=== PATIENT | male | born 1975 | race Two or more races ===

== ENCOUNTER 2025-03-05 10:24 | Emergency (ER) | payer MEDICAID, OTHER ==
[~2025-03-05] VITALS: Ht 170.2 cm; Wt 99.0 kg
[2025-03-05 10:31] VITALS: BP 137/98; PULSE 93; RESP 18; TEMP 97.6; O2SAT 96
--- NOTE | 2025-03-05 10:40 | ED.PDOC ---
Eye-HPI HPI Comments 49-year-old male presents with a chief complaint of tooth pain x a couple days. Patient states that his pain is localized to his left incisor and his gums. Patient is noted to have swollen upper lip. Patient mentions that he has been taking an antibiotic from an urgent care he went to and also ibuprofen. Patient cannot recall the name of the antibiotic. Patient is able to speak in complete sentences. No other symptoms or modifying factors present at this time. Chief Complaint: Tooth Pain Time Seen by MD: 10:32 Reviewed Notes: Medications, Allergies Allergies: Coded Allergies: NO KNOWN ALLERGIES (Unverified , 03/05/25) Home Meds Active Scripts Naproxen (Naproxen) 375 Mg Tab, 375 MG PO TID for 10 Days, #30 TAB Prov:JOHN CERDA MD 03/05/25 Cefdinir (Cefdinir) 300 Mg Cap, 1 CAP PO BID for 7 Days, #14 CAP Prov:JOHN CERDA MD 03/05/25 Information Source: Patient Mode of Arrival: Ambulatory Timing: Days Duration: Since onset Prehospital treatment: Pain Meds Quality: Pain Mouth Location: Upper, Tooth/Teeth, Gums Mouth: Upper, Incisor, Tender, Swelling Onset: Spontaneous Last Tetanus: Unknown Associated signs and symptoms: Tooth Pain Past Medical History PAST MEDICAL HISTORY: Denies Surgical History: Denies all surgeries Family History Family History: Reviewed,noncontributory to illness Social History Smoker: Non-Smoker Alcohol: Denies ETOH Use Drugs: Denies Drug Use Lives In: Home Constitutional: denies: chills, diaphoresis, fatigue, fever, malaise, sweats, weakness, others EENTM: reports: mouth pain; denies: blurred vision, double vision, ear bleeding, ear discharge, ear drainage, ear pain, ear ringing, eye pain, eye redness, hearing loss, mouth swelling, nasal discharge, nose bleeding, nose congestion, nose pain, photophobia, tearing, throat pain, throat swelling, voice changes, others Respiratory: denies: cough, hemoptysis, orthopnea, SOB at rest, shortness of breath, SOB with excertion, stridor, wheezing, others Cardiovascular: denies: chest pain, dizzy spells, diaphoresis, Dyspnea on exertion, edema, irregular heart beat, left arm pain, lightheadedness, palpitations, PND, syncope, others Gastrointestinal: denies: abdomen distended, abdominal pain, blood streaked bowels, constipated, diarrhea, dysphagia, difficulty swallowing, hematemesis, melena, nausea, poor appetite, poor fluid intake, rectal bleeding, rectal pain, vomiting, others Genitourinary: denies: burning, dysuria, flank pain, frequency, hematuria, incontinence, penile discharge, penile sore, pain, testicle pain, testicle swelling, urgency, others Neurological: denies: dizziness, fainting, headache, left sided numbness, left sided weakness, numbness, paresthesia, pre-existing deficit, right sided numbness, right sided weakness, seizure, speech problems, tingling, tremors, weakness, others Musculoskeletal: denies: back pain, gout, joint pain, joint swelling, muscle pain, muscle stiffness, neck pain, others Integumetry: denies: bruises, change in color, change in hair/nails, dryness, laceration, lesions, lumps, rash, wounds, others Allergic/Immunocompromised: denies: Difficulty Healing, Frequent Infections, Hives, Itching, others Hematologic/Lymphatic: denies: anemia, blood clots, easy bleeding, easy bruising, swollen glands, others Endocrine: denies: excessive hunger, excessive sweating, excessive thirst, excessive urination, flushing, intolerance to cold, intolerance to heat, unexplained weight gain, unexplained weight loss, others Psychiatric: denies: anxiety, bipolar disorder, depression, hopeless, panic disorder, schizophrenia, sleepless, suicidal, others All Other Systems: Reviewed and Negative Physical Exam General Appearance: Moderate Distress, Normal HEENT: Normal ENT Inspection, PERRL/EOMI, Pharynx Normal, TMs Normal, NOT DONE (From teeth carious infected with swollen gingiva very painful) Neck: Full Range of Motion, Non-Tender, Normal, Normal Inspection Respiratory: Chest Non-Tender, Lungs Clear, No Accessory Muscle Use, No Respiratory Distress, Normal Breath Sounds Cardiovascular: No Edema, No JVD, No Murmur, No Gallop, Normal Peripheral Pulses, Regular Rate/Rhythm Breast Exam: Deferred Gastrointestinal: No Organomegaly, Non Tender, No Pulsatile Mass, Normal Bowel Sounds, Soft Genitalia: Deferred Pelvic: Deferred Rectal: Deferred Extremities: No calf tenderness, Normal capillary refill, Normal inspection, Normal range of motion, Non-tender, No pedal edema Musculoskeletal : Apperance: Normal Neurologic: Alert, fisher purse seine II-XII nml as Tested, No Motor Deficits, Normal Affect, Normal Mood, No Sensory Deficits Cerebellar Function: Normal Reflexes: Normal Skin: Dry, Normal Color, Warm Peripheral Pulses: 1+ carotid (R), 1+ carotid (L) Lymphatic: No Adenopathy Was a procedure done? Was a procedure done?: No EENT DIFF Eye: Other Ear: N/A Nose: N/A Mouth: N/A Sore Throat: N/A Other Differential Diagnosis Tooth infection swollen face X-Ray, Labs, Meds, VS Vital Signs Date Time Temp Pulse Resp B/P (MAP) Pulse Ox O2 Delivery O2 Flow Rate FiO2 03/05/25 10:31 93 18 96 Room Air 03/05/25 10:31 97.6 93 18 137/98 (111) 96 97.6 03/05/25 10:27 98.2 90 15 119/86 95 98.2 Current Medications Medications (Trade) Dose Ordered Sig/Haleigh Route Start Time Stop Time Status Last Admin Ketorolac Tromethamine (Toradol Injection) 60 mg ONCE ONCE IM 03/05/25 10:45 03/05/25 10:46 DC 03/05/25 10:48 Ceftriaxone Sodium (Rocephin W Lidocaine IM) 1 gm ONCE ONCE IM 03/05/25 10:45 03/05/25 10:46 DC 03/05/25 11:12 X-Ray, Labs, Meds, VS Comment Course in the [employer] eventful patient came in with severe pain to his front teeth mostly left side with swollen gingiva and upper lip and face Patient received Toradol for the pain and Rocephin for the infection He will be discharged to follow up with the his dentist Time of 1ST Reevaluation: 11:02 Reevaluation 1ST: Unchanged Time of 2ND Reevaluation: 11:13 Reevaluation 2ND: Unchanged Consultation: PCP, Other (Dentist) Patient Education/Counseling: Diagnosis, Treatment, Prognosis, Need For Follow Up Family Education/Counseling: Diagnosis, Treatment, Prognosis, Need For Follow Up, No Family Present SEPSIS Sepsis Screen Date sepsis recognized/suspect: Mar 05, 2025 Time Sepsis recognized/suspect: 1028 Recent Procedure: No On Antibiotic Therapy: No Respiratory Rate >20: No Heart Rate >90: No Temp<36 C (96.8 F) or >38.3 C: No SBP <90 or MAP <65 mmHG: No New Acute Mental Status Change: No Is the patient on CPAP, BIPAP,: No Vital Signs Date Time Temp Pulse Resp B/P (MAP) Pulse Ox O2 Delivery O2 Flow Rate FiO2 03/05/25 10:31 93 18 96 Room Air 03/05/25 10:31 97.6 93 18 137/98 (111) 96 97.6 03/05/25 10:27 98.2 90 15 119/86 95 98.2 Medications Medications Dose Ordered Sig/Haleigh Route Start Time Stop Time Status Last Admin Dose Admin Ceftriaxone Sodium 1 gm ONCE ONCE IM 03/05/25 10:45 03/05/25 10:46 DC 03/05/25 11:12 Ketorolac Tromethamine 60 mg ONCE ONCE IM 03/05/25 10:45 03/05/25 10:46 DC 03/05/25 10:48 Departure 1 Departure Time of Disposition: 10:45 Impression: Primary Impression: Tooth infection Disposition: 01 HOME / SELF CARE / HOMELESS Condition: Fair Additional Instructions: Mouthwash with peroxide e-Prescriptions Naproxen (Naproxen) 375 Mg Tab 375 MG PO TID for 10 Days, #30 TAB Prov: JOHN CERDA MD 03/05/25 Cefdinir (Cefdinir) 300 Mg Cap 1 CAP PO BID for 7 Days, #14 CAP Prov: JOHN CERDA MD 03/05/25 Discharged With: Self Critical Care Note Critical Care Time?: No Stability Stability form required: No Heart Score Heart Score: Heart Score Response (Comments) Value History N/A 0 EKG N/A 0 Age 45-64 1 Risk Factors No known risk factors 0 Troponin N/A 0 Total 1 I personally scribed for JOHN CERDA MD ([email or web address]) on 03/05/25 at 10:40. Electronically submitted by Kennedy Miguel ([email or web address]). JOHN CERDA MD Mar 05, 2025 10:40
[2025-03-05] MEDS: LIDOCAINE 1% HCL (LOCAL ANESTH.) INJ 20ML MDV IJ ONE (10:48)
[2025-03-05] MEDS: KETOROLAC TROMETH 60MG/2ML VIAL IM ONE (10:48)
[2025-03-05] MEDS ORDERED: CEFD300C2 PO (10:51)
[2025-03-05] MEDS ORDERED: NAPR-957 PO (10:51)
[2025-03-05] MEDS: cefTRIAXone W LIDOCAINE 1 GM IM IM ONE (11:12)
== END 2025-03-05 11:12 | disposition home or self-care (01) ==
LOC: ER 10:24
DX: K04.7 Periapical abscess without sinus (principal); Z79.899 Other long term (current) drug therapy
CPT/HCPCS: 96372; 99284; J0696; J1885; J2003